=== PATIENT | female | born 1965 | race Caucasian/White ===

== ENCOUNTER 2018-10-27 09:02 | Outpatient (CLI) | payer OTHER, SELFPAY ==
[2018-10-27 11:17] LABS: TSH (W/Ref FT4) 0.99 uIU/mL (0.358-3.74)
[2018-10-27 14:29] LABS: Calculated LDL 127; Cholesterol 204 mg/dL (50-200); HDL Cholesterol 68 mg/dL (40-60); Triglyceride 49 mg/dL (30-150)
== END 2018-10-27 09:22 ==
PROVIDERS: PCP Nurse Practitioner; Visit Provider Nurse Practitioner Family
DX: Z00.00 Encounter for general adult medical examination without abnormal findings (principal); Z13.220 Encounter for screening for lipoid disorders; Z13.29 Encounter for screening for other suspected endocrine disorder
CPT/HCPCS: 36415; 80061; 83721; 84443

== ENCOUNTER 2019-08-12 18:10 | Emergency (ER) | payer OTHER, SELFPAY ==
[2019-08-12 18:16] VITALS: BP 113/56; PULSE 67; RESP 24; TEMP 36.5; O2SAT 100
--- NOTE | 2019-08-12 18:19 | ED.GENADUL_ITS ---
Discharge Plan Disposition Patient Disposition: HOME Condition: Stable Discharge Details Chief Complaint: Dizzy/Sync Clinical Impression: Vasovagal syncope Primary Care Provider: Karen Pitts ED Provider: Feliz Salmeron Home Meds and New Rx's Prescriptions: Continued bupropion HCl 100 MG tablet extended release 12 hr 100 mg PO DAILY AM RF: 0 acyclovir 200 mg capsule 200 mg PO DAILY AM RF: 0 Discharge Instructions Instructions: Syncope (ED) Additional Instructions: Drink plenty of fluids and get plenty of rest. Call your primary care doctor's office tomorrow to schedule follow-up appointment for reevaluation and for referral for outpatient athletic monitor if symptoms persist or worsen. From Dr. Salmeron: At this time your work-up shows no problems with your heart, no signs of blood clot, or other significant abnormality. Recommend drinking plenty of fluids, getting up slowly, and following up closely with your family doctor. Please contact the respiratory therapist scheduling office to get your athletic monitor in the morning or at the most convenient time for you. If you notice any worsening of your symptoms, or any new symptoms such as vomiting, diarrhea, fever, chills, shortness of breath, chest pain, numbness, weakness, or fainting , please return immediately to the emergency department for reevaluation. Please follow up with your primary care provider as soon as possible for reassessment and reevaluation. As always, it was a pleasure participating in your medical care today. Referrals: Karen Pitts [Primary Care Provider] - Discharge Data Discharge Date/Time-TO BE ENTERED AT DEPARTURE: 08/12/19 21:20 Discharge Physician: Aimee Morel Medical Decision Making <Aimee Morel DO - Last Filed: 08/13/19 09:00> 1820 -- 54-year-old female presents after 2 syncopal episodes at home today occurring 1 hour apart that first started after sexual intercourse with her . Admits to mild headache. Denies any chest pain, shortness of breath, palpitations or vertigo. Vitals normal on arrival. She appears in no acute distress. No focal deficits on exam. EKG on arrival notes a rate of 70, sinus, no acute ST ischemic changes. She denies any chest pain or shortness of breath, appears less consistent with cardiac etiology. She has no focal deficits, does not appear consistent with CVA. Suspect most likely vasovagal syncope versus dehydration. Will check screening labs, chest x-ray and give fluids and Zofran. Will check orthostatic vital signs. 1919 --orthostats negative. 1999 --Case endorsed to Dr. Salmeron to follow-up on patient response to fluids with plan for ambulation. If remainder of work-up negative and patient feels better, will plan for discharge home with PCP and follow-up with outpatient monitor. Medical Records Medical records reviewed: Yes I reviewed the patient's medical records. Lab Data Lab results reviewed: Yes I reviewed the patient's lab results. ECG Data Attestation: I personally reviewed and interpreted this ECG (s) as follows: Interpretation: Rate of 70, sinus, no acute ST elevation or depression. OR 154. QTc 438. QRS 98. <Feliz Salmeron, DO - Last Filed: 08/12/19 21:20> Case was signed out to me by my colleague Dr. Aimee Morel. Please refer to her initial documentation, HPI, physical exam and assessment. At time of signout we were pending d-dimer results. Laboratory work-up is all now returned normal, normal chest x-ray, no evidence of dissection or mediastinal widening. EKG unremarkable. Troponin normal. Repeat physical exam demonstrates all 6 cardinal planes of vision are fully intact. No evidence of rotatory or vertical nystagmus. The patient demonstrated a normal aluqfy-uzgh-aomarn, good dexterity. There was no evidence of dysdiadochokinesia. Patient was able to ambulate without difficulty. There was no wide-based gait. Romberg testing was normal. Ylrv-pr-zxsb testing was normal. Sensation was intact bilaterally as well as muscle strength bilaterally for all extremities. Patient was able to verbalize butter cup with no slurring, or miss pronunciation. No nuchal rigidity or meningismus. Signs and symptoms are clinically inconsistent with ACS, dissection, acute intracranial abnormality. I did discuss option of additional intracranial imaging, and the patient would like to hold off at this time following understanding the risks and benefits. At this time patient is feeling much better and is asking to go home. Patient will be discharged home with close follow-up. Will recommend Holter monitor on an outpatient basis. Discussed red flags for which to return. If you notice any worsening of your symptoms, or any new symptoms such as vomiting, diarrhea, fever, chills, shortness of breath, chest pain, numbness, weakness, or fainting , please return immediately to the emergency department for reevaluation. Please follow up with your primary care provider as soon as possible for reassessment and reevaluation. As always, it was a pleasure participating in your medical care today. FINDINGS: Lungs: Unremarkable. No consolidation. Pleural space: Unremarkable. No pleural effusion. No pneumothorax. Heart/Mediastinum: Unremarkable. No cardiomegaly. Bones/joints: Unremarkable. IMPRESSION: No acute findings. Dictated and Authenticated by: Mejia Vasquez MD. Ordering:YUE Yu MD HPI <Aimee Morel, DO - Last Filed: 08/13/19 09:00> General Mode of arrival: wheelchair . Date/Time Provider Initiated Documentation: 08/12/19 18:15 . Limitations to Documentation: no limitations . Information obtained by: patient . HPI Narrative: Patient is a 54-year-old female who presents to the ED after 2 syncopal episodes this afternoon at home. Patient states she had sexual intercourse with her and a few minutes after she felt dizzy, lightheaded, nauseous and that her body felt light. She states she then remembers her calling out to her as she passed out for possibly a few seconds. She states approximately an hour later she was sitting on the phone with her sister when she felt lightheaded and nauseous again and her was standing near her calling out to her again. She denies any injury with either syncopal episode. She states she was able to walk out of her house and into her car to come here. She states she felt too weak to walk from her car into the emergency department today. She states since these episodes occurred she did feel tingling in her fingertips and around her mouth which is now improving. She does admit to a mild headache on the top of her head. She states she was treated for sinus infection 2 months ago but states this is been resolved for a few weeks. She states she also traveled to [place] 2 weeks ago on a 3-hour plane ride. She denies any fever, ear pain, cough, chest pain, shortness of breath, abdominal pain, vomiting, diarrhea, leg pain or swelling. Related Data Home Medications Medication Instructions Recorded Confirmed bupropion HCl 100 mg PO DAILY AM 01/02/14 01/02/14 acyclovir 200 mg PO DAILY AM 08/12/19 08/12/19 Allergies Allergy/AdvReac Type Severity Reaction Status Date / Time morphine Allergy Severe Dizziness/L Unverified 08/12/19 18:22 ightheade Review of Systems <Aimee Morel DO - Last Filed: 08/13/19 09:00> All systems reviewed & are unremarkable except as noted in HPI and below Constitutional Constitutional: Reports as per HPI, Denies chills and Denies fever(s) Eyes Eyes: Denies blurry vision ENT Ears, Nose, Mouth, and Throat: Denies dizziness, Denies sore throat and Denies throat swelling Cardiovascular Cardiovascular: Denies chest pain, Reports syncope, Reports lightheadedness and Denies dyspnea Respiratory Respiratory: Denies cough and Denies dyspnea Gastrointestinal Gastrointestinal: Denies abdominal pain, Denies diarrhea and Denies vomiting Genitourinary Genitourinary: Denies hematuria and Denies dysuria Musculoskeletal Musculoskeletal: Denies back pain and Denies numbness Integumentary/Breasts Skin/Breast: Denies lesions and Denies rash Neurologic Neurologic: Denies dizziness, Reports syncope, Denies localized weakness and Denies numbness Allergic/Immunologic Allergic/Immunologic: Denies throat swelling PFSH <Aimee Morel DO - Last Filed: 08/13/19 09:00> Medical History (Updated 08/12/19 @ 19:11 by Aimee Morel DO) Anxiety (Chronic) Surgical History (Updated 08/12/19 @ 19:11 by Aimee Morel DO) History of appendectomy (Chronic) History of hysterectomy (Chronic) Social History Smoking/Tobacco Use Status: Never Alcohol Intake: current Alcohol Intake frequency: holidays/special occasions only Drug use: Never Substance use type: marijuana Details: pt states that she uses her own eatable marijuana at night only for sleep. nont today Do you feel safe at home: Yes Do you feel safe in your relationship?: Yes Exam <Aimee Morel DO - Last Filed: 08/13/19 09:00> Const General: cooperative, healthy appearing and no acute distress HENMT Head: normal to inspection Ears: hearing grossly normal bilaterally, external ears normal and TM's normal bilaterally General nose exam: external nose normal Face and sinus: normal facial exam Mouth: oral mucosae normal Throat: posterior oropharynx normal Eyes General: appearance normal, both eyes and all related structures Pupils: PERRL EOM: EOM intact bilaterally Neck Neck: normal visual inspection and No submandibular swelling Lymphatic: no lymphadenopathy noted Chest Chest: normal inspection of the chest and no tenderness Resp Effort & Inspection: normal respiratory effort and able to speak in complete sentences Auscultation: clear to auscultation bilaterally Cardio Rate: regular rate Rhythm: regular rhythm GI Inspection: normal to inspection Palpation: soft, not firm, not rigid and nontender Auscultation: normal bowel sounds Skin General skin exam: no rashes or lesions noted Neuro General: patient alert, patient awake and patient oriented x3 Cranial Nerves: CN's II-XI intact bilaterally Cognition: normal cognition Speech: speech normal Motor: muscle tone normal throughout and strength 5/5 throughout Sensory Exam: no sensory deficits noted Extrem General: normal to inspection, full ROM, capillary refill normal, no calf tenderness bilaterally and no edema Psych Appearance: grossly normal Mental Status: mental status grossly normal Speech and Movement: speech and movement normal Affect: normal affect Sign Out <Aimee Morel DO - Last Filed: 08/13/19 09:00> Sign Out Data: Sign Out Comment: Follow-up on labs and imaging and final disposition. If patient feels better and work-up negative, okay to discharge home with plan for follow-up with PCP and consideration for outpatient athletic monitor. Last updated by Aimee Morel DO at 08/12/19 19:28
[2019-08-12 19:10] LABS: Absolute Basophil Count 0.04 k/cumm (0.0-0.2); Absolute Eosinophil Count 0.17 k/cumm (0.0-0.7); Absolute Lymphocyte Count 1.45 k/cumm (1.2-3.4); Absolute Neutrophil Count 2.57 k/cumm (1.2-6.7); Basophils % 0.9; Eosinophils % 3.7; HCT 39.5 % (36.0-46.0); HGB 13.3 g/dL (12.0-15.5); Lymphocytes % 31.3; Mean Corp. HGB Concentration 33.7 g/dL (32.0-36.0); Mean Corpuscular Hemoglobin 30.9 pg (27.0-33.0); Mean Corpuscular Volume 91.6 fL (80-95); Mean Platelet Volume 10.9 fL (8.0-11.0); Monocytes % 8.6; Neutrophils % 55.5; Platelet Count 256 x1000/uL (130-400); RBC 4.31 m/cumm (4.00-5.20); RBC Distribution Width 13.2 % (11.7-14.6); White Blood Cell Count 4.63 k/cumm (4.4-10.8)
[2019-08-12] MEDS: Normal Saline 1,000 ML 1000 ML IV (19:15)
[2019-08-12] MEDS: Ondansetron 4 MG/2 ML VIAL IVP (19:15)
[2019-08-12 19:16] VITALS: BP 120/75; BP 123/73; BP 126/75; PULSE 63; PULSE 68; PULSE 70
[2019-08-12 19:26] LABS: ALT 24 U/L (14-59); AST 14 U/L (15-37); Albumin 3.9 g/dL (3.4-5.0); Alkaline Phosphatase 51 U/L (46-116); Anion Gap 10.6 mmol/L (3-11); BUN 17 mg/dL (7-18); Bilirubin, Total 0.3 mg/dL (0.2-1.0); CO2 26.4 mmol/L (21.0-32.0); CREATININE 0.84 mg/dL (0.55-1.02); Calcium 8.9 mg/dL (8.5-10.1); Chloride 105 mmol/L (98-107); Glucose 101 mg/dL (74-106); Potassium 3.5 mmol/L (3.5-5.1); Sodium 142 mmol/L (136-145); Total Protein 7.1 g/dL (6.4-8.2)
[2019-08-12 19:28] LABS: Troponin I < 0.05 ng/Ml (<0.06)
--- NOTE | 2019-08-12 19:45 | DI.RAD_ITS ---
EXAM: XR CHEST 2V PA LATERAL CLINICAL HISTORY: syncope, r/o acute disease TECHNIQUE: 2D digital imaging was performed. COMPARISON: ABD FLAT UPRIGHT PA CHEST from 01/02/2014 FINDINGS: The heart is not enlarged. The lungs are clear and well expanded. No pleural effusion seen. Mediastin al contours appear intact. IMPRESSION: Normal chest
--- NOTE | 2019-08-12 19:50 | DI.VRAD_ITS ---
PROCEDURE INFORMATION: Exam: XR Chest, 2 Views Exam date and time: 08/12/2019 7:33 PM Age: 54 years old Clinical indication: Other: Syncope; Additional info: Syncope, R/O acute disease TECHNIQUE: Imaging protocol: XR of the chest Views: 2 views. COMPARISON: CR ABD FLAT UPRIGHT PA CHEST 01/02/2014 1:55 PM FINDINGS: Lungs: Unremarkable. No consolidation. Pleural space: Unremarkable. No pleural effusion. No pneumothorax. Heart/Mediastinum: Unremarkable. No cardiomegaly. Bones/joints: Unremarkable. IMPRESSION: No acute findings. Dictated and Authenticated by: Mejia Vasquez MD. Ordering:YUE Yu MD
[2019-08-12 20:51] LABS: D-Dimer 252 ng/mlFEU (<500)
== END 2019-08-12 21:20 | disposition home or self-care (01) ==
PROVIDERS: Physician Assistant; Emergency Provider Student in an Organized Health Care Education/Training Program; PCP Nurse Practitioner Family
DX: R55 Syncope and collapse (principal)
CPT/HCPCS: 36416; 80053; 82962; 93005; 96361; 96374; 99284; 71046; 83735; 84484; 85025; 85379; 93010; J2405

== ENCOUNTER 2019-08-13 09:48 | Outpatient (CLI) | payer OTHER, SELFPAY | END 2019-08-13 10:08 | PROVIDERS: PCP Nurse Practitioner Family; Visit Provider Student in an Organized Health Care Education/Training Program | DX: R55 Syncope and collapse (principal); I49.1 Atrial premature depolarization | CPT/HCPCS: 93225 ==

== ENCOUNTER 2019-08-18 09:03 | Outpatient (CLI) | payer OTHER, SELFPAY ==
--- NOTE | 2019-08-19 08:38 | W.HOLTRPT ---
Date of service: 08/19/19 Time of Service: 08:38 Holter Monitor Report Holter Monitor Note: There is a 24-hour Holter monitor ordered for indication of syncope. ?The patient was in normal sinus rhythm for the majority of the recording. ?There were 0 episodes of supraventricular tachycardia and 3 singular premature atrial contractions. ?There were 0 episodes of ventricular tachycardia and 27 singular ventricular ectopic beats. ?There were no episodes of atrial fibrillation no pauses greater than 3 seconds and no evidence of high degree heart block. ?There were no patient triggered events.
== END 2019-08-18 09:23 ==
PROVIDERS: PCP Nurse Practitioner Family; Visit Provider Student in an Organized Health Care Education/Training Program
DX: R55 Syncope and collapse (principal); I49.1 Atrial premature depolarization
CPT/HCPCS: 93226

== ENCOUNTER 2019-08-30 08:50 | Outpatient (REF) | payer OTHER, SELFPAY ==
[2019-08-30 20:54] LABS: TSH (W/Ref FT4) 1.48 uIU/mL (0.36-3.74); Vitamin B12 376 pg/mL (193-986)
== END 2019-08-30 09:10 ==
LOC: NCHCN 08:50
PROVIDERS: PCP Nurse Practitioner Family; Visit Provider Nurse Practitioner Family
DX: F03.90 Unspecified dementia, unspecified severity, without behavioral disturbance, psychotic disturbance, mood disturbance, and anxiety (principal)
CPT/HCPCS: 82607; 84443

== ENCOUNTER 2019-12-29 14:48 | Outpatient (REF) | payer OTHER, SELFPAY ==
[2019-12-29 21:05] LABS: Calculated LDL 130 mg/dL (<100); Cholesterol 217 mg/dL (<200); HDL Cholesterol 76 mg/dL (40-60); Triglyceride 57 mg/dL (<150)
== END 2019-12-29 15:08 ==
LOC: NCHCN 14:48
PROVIDERS: PCP Nurse Practitioner Family; Visit Provider Physician Assistant
DX: Z00.00 Encounter for general adult medical examination without abnormal findings (principal); Z13.220 Encounter for screening for lipoid disorders
CPT/HCPCS: 80061

== ENCOUNTER 2020-03-03 15:27 | Emergency (ER) | payer OTHER, SELFPAY ==
[2020-03-03 15:30] VITALS: BP 119/81; PULSE 74; RESP 18; TEMP 36.4; O2SAT 99
--- NOTE | 2020-03-03 15:45 | DI.CT_ITS ---
EXAM: CT ABDOMEN PELVIS W CLINICAL HISTORY: lower abdominal pain TECHNIQUE: Imaging Protocol: Axial computed tomography images with coronal and sagittal reformatted images were created and reviewed CONTRAST MATERIAL: Intravenous: Omnipaque 350 Contrast volume:87 mL Oral: No COMPARISON: No exams were available for comparison FINDINGS: ABDOMEN: Lung Bases: Bibasilar dependent atelectasis. Liver: Normal density. No measurable mass. Several tiny hypodensities scattered in the liver. They a re too small for further characterization but likely reflect small cysts. The liver measures 18.3 cm in length. Portal, Superior Mesenteric, and Splenic Veins: Unremarkable. Gallbladder and Biliary Tract: No radiodense calculus or dilation. Pancreas: Normal density, no abnormal calcifications or inflammatory process. Spleen: Normal. Adrenals: No masses seen. Kidneys: Normal size, contour and axis. Bilateral nonobstructing stones. Less than 1 cm cyst in the lower pole of the right kidney. No further workup necessary. Abdominal Aorta: Abdominal portion non-dilated. Mild atherosclerosis. Bowel: No evidence of obstruction. There is bowel wall thickening in a segment of the distal descend ing colon. Mild pericolonic inflammatory changes seen. This may represent an infectious or inflamma tory colitis. No evidence of appendicitis. Peritoneal Cavity: No ascites, collection or mesenteric inflammatory response. Lymph Nodes: Within normal limits. Bones: Mild degenerative changes. Soft Tissues: Unremarkable. PELVIS: Bladder: Symmetric distention, no gross wall thickening. Reproductive Organs: Status post hysterectomy. Lymph Nodes: Within normal limits. Bones: Mild degenerative changes. IMPRESSION: Findings suspicious for an inflammatory infectious colitis involving the descending colon. RADIATION DOSE DELIVERED: 691.51mGy.cm Total DLP DATA REPOSITORY: All CT scans at this facility are submitted to the National Radiology Data Registry (NRDR) Dose Index Registry (DIR) with the [employer] ([employer]). RADIATION OPTIMIZATION: All CT scans at this facility use at least one of these dose optimization te chniques: automated exposure control; mA and/or kV adjustment per patient size (includes targeted exa ms where dose is matched to clinical indication); or iterative reconstruction.
[2020-03-03] MEDS: Normal Saline 1,000 ML 1000 ML IV (16:00)
[2020-03-03] MEDS: Normal Saline Flush 10 ML SYR IVP ×2 (16:00→16:36)
[2020-03-03 16:11] LABS: Abs Immature Grans 0.01 10^3/uL (0.0-0.06); Absolute Basophil Count 0.05 10^3/uL (0.0-0.2); Absolute Eosinophil Count 0.23 10^3/uL (0.0-0.7); Absolute Lymphocyte Count 1.16 10^3/uL (1.2-3.4); Absolute Monocyte Count 0.43 10^3/uL (0.1-0.8); Absolute Neutrophil Count 2.99 10^3/uL (1.2-6.7); Eosinophils % 4.7; HCT 41.1 % (36.0-46.0); HGB 13.5 g/dL (11.2-15.7); Immature Grans % 0.2; Lymphocytes % 23.8; MCH 30.5 pg (27.0-33.0); MCHC 32.8 % (32.0-36.0); MCV 92.8 fL (80-95); MPV 11.2 fL (8.0-11.0); Monocytes % 8.8; Neutrophils % 61.5; Nucleated RBC 0 %; Platelet Count 187 10^3/uL (130-400); RBC 4.43 10^6/uL (3.93-5.22); RDW 12.5 % (11.7-14.6); RDW-SD 43.4 fL; WBC 4.87 10^3/uL (4.4-10.8)
--- NOTE | 2020-03-03 16:14 | ED.GENADUL_ITS ---
Discharge Plan Disposition Patient Disposition: HOME Condition: Stable Discharge Details Clinical Impression: Abdominal pain, Colitis Primary Care Provider: Karen Pitts ED Provider: Yan Cabrera Home Meds and New Rx's Prescriptions: New prednisone 20 mg tablet 60 mg PO DAILY 4 Days Qty: 12 RF: 0 metronidazole [Flagyl] 500 mg tablet 500 mg PO Q8H Qty: 21 RF: 0 ciprofloxacin HCl 500 mg tablet 500 mg PO BID Qty: 14 RF: 0 Continued bupropion HCl 100 MG tablet extended release 12 hr 100 mg PO DAILY AM RF: 0 acyclovir 200 mg capsule 200 mg PO DAILY AM RF: 0 Discharge Instructions Instructions: Colitis (ED) Additional Instructions: your cat scan showed inflammation of a small portion of your colon follow up with your primary care provider within a week if symptoms continue if you have worsening pain, feel more ill or persistent vomit return to the emergency department Medical Decision Making 55 yo female comes in with lower abdominal creamping and mucous stool with small amount of blood per patient. Denies vomit, fevers, recent travel. She arrives hd stable and has tenderness without guarding in the left lower abdomen. Suspect diverticulitis vs colitis, will obtian labs and ct and reassess. Pt's labs unremarkable, ct shows segmental infectious/inflammatory colitis of descending colon. SHe remains stable with no severe pain. Will start on prednisone and abx. Advised f/u with pcp and return precautions given Differential Diagnosis Differential Diagnosis: diverticulitis, colitis, infectious colitis Imaging Data Radiologic Study: Attestation: I personally reviewed and interpreted this imaging study as follows: Imaging: CT Scan Radiologist's impression: IMPRESSION: 1. Findings favor mild segmental infectious/inflammatory colitis involving the descending colon. 2. Incidental findings as detailed above. Lab Data Lab results reviewed: Yes I reviewed the patient's lab results. HPI General Mode of arrival: ambulatory . Date/Time Provider Initiated Documentation: 03/03/20 15:38 . Limitations to Documentation: no limitations . Information obtained by: patient . History of Present Illness 55 year old F presents to the emergency department with the chief complaint of abdominal pain, described as moderate, Patient started experiencing this hour(s) (14) and it has been constant. No exacerbating factors reported . Patient did receive the following treatments prior to arrival, none Related Data Home Medications Medication Instructions Recorded Confirmed bupropion HCl 100 mg PO DAILY AM 01/02/14 03/03/20 acyclovir 200 mg PO DAILY AM 08/12/19 03/03/20 ciprofloxacin HCl 500 mg PO BID #14 tab 03/03/20 metronidazole [Flagyl] 500 mg PO Q8H #21 tab 03/03/20 prednisone 60 mg PO DAILY 4 Days #12 tab 03/03/20 Previous Rx's Medication Instructions Recorded ciprofloxacin HCl 500 mg PO BID #14 tab 03/03/20 metronidazole [Flagyl] 500 mg PO Q8H #21 tab 03/03/20 prednisone 60 mg PO DAILY 4 Days #12 tab 03/03/20 Allergies Allergy/AdvReac Type Severity Reaction Status Date / Time morphine Allergy Severe Dizziness/L Unverified 03/03/20 15:35 ightheade General Stated Complaint: Abd Prob CIELO: 3 Review of Systems All systems reviewed & are unremarkable except as noted in HPI and below Constitutional Constitutional: Denies chills, Denies fever(s) and Denies weakness Cardiovascular Cardiovascular: Denies chest pain and Denies dyspnea Respiratory Respiratory: Denies cough and Denies dyspnea Gastrointestinal Gastrointestinal: Denies nausea and Denies vomiting Musculoskeletal Musculoskeletal: Denies joint swelling Neurologic Neurologic: Denies weakness Psychiatric Psychiatric: Denies depression [facility] Medical History (Updated 03/03/20 @ 17:12 by Yan Cabrera MD) Anxiety Surgical History (Updated 08/12/19 @ 19:11 by Aimee Morel DO) History of appendectomy History of hysterectomy Social History Smoking/Tobacco Use Status: Never Smoking risk assessment performed?: Yes Alcohol Intake: current Alcohol Intake frequency: holidays/special occasions only Drug use: Never Substance use type: marijuana Details: pt states that she uses her own eatable marijuana at night only for sleep. nont today Do you feel safe at home: Yes Do you feel safe in your relationship?: Yes Exam Const General: no acute distress Orientation: alert HENMT Head: normal to inspection Ears: external ears normal General nose exam: external nose normal Mouth: moist mucous membranes Eyes General: appearance normal, both eyes and all related structures Neck Neck: normal visual inspection Resp Effort & Inspection: normal respiratory effort and able to speak in complete sentences Cardio Rate: regular rate GI Palpation: soft and not rigid Skin General skin exam: no rashes or lesions noted Neuro General: patient alert and patient oriented x3 Extrem General: normal to inspection Psych Mental Status: mental status grossly normal Course Vital Signs Vital signs: Vital Signs Temperature 36.4 C L 03/03/20 15:30 Pulse 74 03/03/20 15:30 Respiratory Rate 18 03/03/20 15:30 Blood Pressure 119/81 03/03/20 15:30 Pulse Oximetry 99 03/03/20 15:30 Temperature 36.4 C L 03/03/20 15:30 Temperature Source Skin 03/03/20 15:30 Pulse 74 03/03/20 15:30 Respiratory Rate 18 03/03/20 15:30 Respiratory Effort Non-Labored 03/03/20 15:34 Blood Pressure 119/81 03/03/20 15:30 Blood Pressure Position Sitting 03/03/20 15:30 Pulse Oximetry 99 03/03/20 15:30 Oxygen Delivery Method Room Air 03/03/20 15:30 Oxygen Flow Rate 0 03/03/20 15:30 Pain Level 4 03/03/20 15:30 Lab/Test Results Lab/Test Results: Laboratory Tests Range/Units 03/03/20 16:00 WBC (4.4-10.8) 10^3/uL 4.87 RBC (3.93-5.22) 10^6/uL 4.43 Hgb (11.2-15.7) g/dL 13.5 Hct (36.0-46.0) % 41.1 MCV (80-95) fL 92.8 MCH (27.0-33.0) pg 30.5 MCHC (32.0-36.0) % 32.8 RDW (11.7-14.6) % 12.5 Plt Count (130-400) 10^3/uL 187 MPV (8.0-11.0) fL 11.2 H Immature Gran % 0.2 Neutrophils % 61.5 Lymphocytes % 23.8 Monocytes % 8.8 Eosinophils % 4.7 Basophils % 1.0 Nucleated RBC % % 0 Absolute Neutrophils (1.2-6.7) 10^3/uL 2.99 Absolute Lymphocytes (1.2-3.4) 10^3/uL 1.16 L Absolute Monocytes (0.1-0.8) 10^3/uL 0.43 Absolute Eosinophils (0.0-0.7) 10^3/uL 0.23 Absolute Basophils (0.0-0.2) 10^3/uL 0.05
[2020-03-03 16:29] LABS: Prothrombin Time 9.6 sec (9.3-11.0)
[2020-03-03] MEDS: Omnipaque 350 MG/ML 100 ML BTL IJ (16:35)
[2020-03-03] MEDS: Normal Saline - Diluent 50 ML VIAL IV (16:37)
[2020-03-03 16:38] LABS: ALT 25 U/L (14-59); AST 14 U/L (15-37); Albumin 3.9 g/dL (3.4-5.0); Alkaline Phosphatase 51 U/L (46-116); Anion Gap 5.9 mmol/L (3-11); BUN 21 mg/dL (7-18); Bilirubin, Direct 0.06 mg/dL (0.00-0.20); Bilirubin, Total 0.3 mg/dL (0.2-1.0); CO2 30.1 mmol/L (21.0-32.0); CREATININE 0.77 mg/dL (0.55-1.02); Calcium 9.2 mg/dL (8.5-10.1); Chloride 103 mmol/L (98-107); Glucose 95 mg/dL (74-106); Lipase 138 U/L (73-393); Magnesium 2.1 mg/dL (1.8-2.4); Potassium 4.1 mmol/L (3.5-5.1); Sodium 139 mmol/L (136-145); Total Protein 7.2 g/dL (6.4-8.2)
--- NOTE | 2020-03-03 17:01 | DI.VRAD_ITS ---
PROCEDURE INFORMATION: Exam: CT Abdomen And Pelvis With Contrast Exam date and time: 03/03/2020 4:34 PM Age: 55 years old Clinical indication: Other: Lower abdominal pain TECHNIQUE: Imaging protocol: Computed tomography of the abdomen and pelvis with intravenous contrast. Contrast material: OMNIPAQUE 350; Contrast volume: 87 ml; Contrast route: INTRAVENOUS (IV); COMPARISON: No relevant prior studies available. FINDINGS: Lungs: There is subpleural atelectasis of the dependent portions of the lungs. The visualized portions of the lung bases demonstrate no acute disease. Liver: There is marked enlargement of the liver. There is a diffuse decrease in hepatic parenchymal density, consistent with fatty infiltration. Scattered subcentimeter hypodense liver lesions are too small to characterize but most probably benign representing small cysts. These can be correlated with ultrasound in a nonemergent setting. The liver is otherwise unremarkable. Gallbladder and bile ducts: Normal. No calcified stones. No ductal dilation. Pancreas: Normal. No ductal dilation. Spleen: Normal. No splenomegaly. Adrenal glands: Normal. No mass. Kidneys and ureters: 2 mm nonobstructive right renal stone. 3 mm nonobstructive left renal stone. 6 mm hypodense lesion in the right kidney favors a small cyst. There is a junctional parenchymal defect in the right kidney on image 251 series 5, this is a normal anatomical variant. Kidneys appear otherwise unremarkable. No acute renal findings. No obstructive uropathy. Stomach and bowel: There is segmental wall thickening noted diffusely throughout the descending colon with a subtle amount of pericolonic fat stranding. No other segmental bowel wall thickening is appreciated. No bowel obstruction. Moderate constipation. Appendix: Appendix is not confidently visualized on this examination, however there are no significant inflammatory changes to the right lower quadrant. Intraperitoneal space: Unremarkable. No free air. No significant fluid collection. Vasculature: Unremarkable. No abdominal aortic aneurysm. Lymph nodes: Unremarkable. No enlarged lymph nodes. Urinary bladder: Unremarkable as visualized. Reproductive: Unremarkable as visualized. Bones/joints: No acute skeletal pathology. Mild multilevel degenerative changes of the spine, as manifested by multilevel anterior osteophytes and multilevel decrease in intervertebral disc space. Soft tissues: Unremarkable. IMPRESSION: 1. Findings favor mild segmental infectious/inflammatory colitis involving the descending colon. 2. Incidental findings as detailed above. Dictated and Authenticated by: Walter Foss MD. Ordering:IFEANYI Heredia MD
[2020-03-03 17:21] VITALS: BP 123/71; PULSE 67; RESP 20; O2SAT 100
[2020-03-03 17:22] VITALS: BP 123/71; PULSE 67; RESP 20; O2SAT 100
== END 2020-03-03 17:22 | disposition home or self-care (01) ==
PROVIDERS: Emergency Provider Emergency Medicine; PCP Nurse Practitioner Family
DX: K52.9 Noninfective gastroenteritis and colitis, unspecified (principal); R19.5 Other fecal abnormalities
CPT/HCPCS: 80053; 83690; 96360; 99285; 74177; 82248; 83735; 85025; 85610; 85730; 99284; J3490

== ENCOUNTER 2021-01-05 17:17 | Outpatient (REF) | payer OTHER, SELFPAY ==
[2021-01-05 20:53] LABS: Calculated LDL 139 mg/dL (<100); Cholesterol 225 mg/dL (<200); HDL Cholesterol 79 mg/dL (40-60); Triglyceride 35 mg/dL (<150)
== END 2021-01-05 17:18 | disposition home or self-care (01) ==
LOC: NCHCN 17:17
PROVIDERS: PCP Nurse Practitioner Family; Visit Provider Nurse Practitioner Family
DX: E78.5 Hyperlipidemia, unspecified (principal); R21 Rash and other nonspecific skin eruption; K64.9 Unspecified hemorrhoids; L30.1 Dyshidrosis [pompholyx]; J30.2 Other seasonal allergic rhinitis; R25.1 Tremor, unspecified; Z00.00 Encounter for general adult medical examination without abnormal findings; H74.8X9 Other specified disorders of middle ear and mastoid, unspecified ear
CPT/HCPCS: 80061

== ENCOUNTER 2023-04-21 11:38 | Outpatient (REF) | payer OTHER, SELFPAY ==
[2023-04-21 15:02] LABS: Calculated LDL 126 mg/dL (<100); Cholesterol 206 mg/dL (<200); HDL Cholesterol 75 mg/dL (40-60); Triglyceride 29 mg/dL (<150)
== END 2023-04-21 11:39 | disposition home or self-care (01) ==
LOC: NCHCN 11:38
PROVIDERS: PCP Nurse Practitioner Family; Visit Provider Nurse Practitioner Family
DX: E78.5 Hyperlipidemia, unspecified (principal)
CPT/HCPCS: 80061

== ENCOUNTER 2023-10-27 15:15 | Outpatient (REF) | payer OTHER, SELFPAY | END 2023-10-27 15:16 | disposition home or self-care (01) | LOC: NCHCN 15:15 | PROVIDERS: PCP Nurse Practitioner Family; Visit Provider Nurse Practitioner Family | DX: R30.0 Dysuria (principal) | CPT/HCPCS: 87086 ==

== ENCOUNTER 2024-07-14 04:32 | Outpatient (CLI) | payer OTHER, SELFPAY ==
[2024-07-14 12:45] LABS: Abs Immature Grans 0.01 10^3/uL (0.0-0.06); Absolute Basophil Count 0.06 10^3/uL (0.0-0.2); Absolute Eosinophil Count 0.89 10^3/uL (0.0-0.7); Absolute Lymphocyte Count 1.37 10^3/uL (1.2-3.4); Absolute Monocyte Count 0.21 10^3/uL (0.1-0.8); Basophils % 1.6 %; Eosinophils % 23.4 %; HCT 41.6 % (36.0-46.0); HGB 13.6 g/dL (11.2-15.7); Immature Grans % 0.3 %; MCH 30.4 pg (27.0-33.0); MCHC 32.7 % (32.0-36.0); MCV 93 fL (80-95); MPV 11.4 fL (8.0-11.0); Monocytes % 5.5 %; Neutrophils % 33.2 %; Platelet Count 198 10^3/uL (130-400); RBC 4.47 10^6/uL (3.93-5.22); RDW 12.8 % (11.7-14.6); RDW-SD 43.9 fL; WBC 3.81 10^3/uL (4.4-10.8)
[2024-07-14 12:47] LABS: Absolute Neutrophil Count 1.26 10^3/uL (1.2-6.7)
[2024-07-14 13:27] LABS: ALT 23 U/L (14-59); AST 16 U/L (15-37); Alkaline Phosphatase 64 U/L (46-116); Anion Gap 8.4 mmol/L (3-11); BUN 19 mg/dL (7-18); Bilirubin, Total 0.4 mg/dL (0.2-1.0); CO2 29.6 mmol/L (21.0-32.0); CREATININE 0.8 mg/dL (0.55-1.02); Calcium 9.5 mg/dL (8.5-10.1); Chloride 105 mmol/L (98-107); Estimated GFR 84.82 (mL/min/1.73m2); Ferritin 109 ng/mL (8-252); Glucose 91 mg/dL (74-106); Magnesium 2.1 mg/dL (1.8-2.4); Potassium 4.4 mmol/L (3.5-5.1); Sodium 143 mmol/L (136-145); TSH (W/Ref FT4) 0.85 uIU/mL (0.36-3.74); Total Protein 7.4 g/dL (6.4-8.2); Vitamin B12 582 pg/mL (193-986)
[2024-07-14 14:25] LABS: Iron 75 ug/dL (50-170); Total Iron Binding Capacity 298 ug/dL (250-450); Transferrin Sat 25 % (15-50)
[2024-07-15 10:27] LABS: Transferrin 246 mg/dL (201-352)
== END 2024-07-14 04:33 | disposition home or self-care (01) ==
LOC: LOS 04:32
PROVIDERS: PCP Nurse Practitioner Family; Visit Provider Nurse Practitioner Family
DX: Z00.00 Encounter for general adult medical examination without abnormal findings (principal); R53.83 Other fatigue; K30 Functional dyspepsia
CPT/HCPCS: 36415; 80053; 82607; 82728; 83540; 83550; 83735; 84443; 84466; 85025